=== PATIENT | male | born 1975 | race Caucasian/White ===

== ENCOUNTER 2017-11-13 14:50 | Emergency (ER) | payer OTHER ==
[2017-11-13] MEDS ORDERED: GLUCAGON,HUMAN RECOMB 1 MG INJ IV STA (15:13)
--- NOTE | 2017-11-13 15:40 | ER Document Report ---
ED General - General Chief Complaint: Choked/Choking Stated Complaint: CHOKING Time Seen by Provider: 11/13/17 15:00 TRAVEL OUTSIDE OF THE [place] IN LAST 30 DAYS: No - HPI Onset: Other - 1 hour prior to arrival Onset/Duration: Sudden, Constant Quality of pain: Achy Severity: Moderate Exacerbated by: Food Relieved by: Denies Similar symptoms previously: Yes Notes: Patient presents to emergency room for food bolus impaction. He was eating a corndog at about 230 this afternoon and felt it get stuck in his esophagus. He has been unable to tolerate liquids or his saliva since. He did try to induce vomiting with no success. He has a history of food impactions in the past. The last time he had an EGD was 2005. He is not currently under the care of a GI physician. He reports an aching pain high in the back of his throat. He denies any difficulty breathing, wheezing, chest pain, and abdominal pain. - Related Data Allergies/Adverse Reactions: No Known Allergies Allergy (Verified 11/13/17 14:51) Past Medical History - Social History Smoking Status: Never Smoker Frequency of alcohol use: Occasional Drug Abuse: None Family History: Reviewed & Not Pertinent - Medical History Medical History: Negative Past Surgical History: Reports: Hx Appendectomy, Hx Nose Surgery - septoplasty, Hx Tonsillectomy - Immunizations Hx Diphtheria, Pertussis, Tetanus Vaccination: Yes Review of Systems - Review of Systems Notes: REVIEW OF SYSTEMS: CONSTITUTIONAL : Denies fever, chills, or sweats. Denies recent illness. EENT: Denies eye, ear, throat, or mouth pain or symptoms. Denies nasal or sinus congestion. CARDIOVASCULAR: Denies chest pain. RESPIRATORY: Denies cough, cold, or chest congestion. Denies shortness of breath, difficulty breathing, or wheezing. GASTROINTESTINAL: Unable to swallow. Denies abdominal pain. Denies nausea, vomiting, or diarrhea. Denies constipation. GENITOURINARY: Denies difficulty urinating, painful urination and urinary frequency. MUSCULOSKELETAL: Denies neck or back pain or joint pain. SKIN: Denies rash or skin lesions. HEMATOLOGIC : Denies easy bruising or bleeding. LYMPHATIC: Denies swollen, enlarged glands. NEUROLOGICAL: Denies altered mental status. Denies headache. Denies weakness or paralysis. Denies problems with gait or speech. Denies sensory or motor loss. PSYCHIATRIC: Denies anxiety or depression. ALL OTHER SYSTEMS REVIEWED AND NEGATIVE. Physical Exam - Vital signs Vitals: Pulse Ox 98 11/13/17 15:02 - Notes Notes: PHYSICAL EXAMINATION: GENERAL: well-nourished and in mild acute distress. HEAD: Atraumatic, normocephalic. EYES: Pupils equal round and reactive to light, extraocular movements intact, conjunctiva are normal. ENT: nares patent, oropharynx clear without exudates. Moist mucous membranes. Spitting oral secretions NECK: Normal range of motion, supple without lymphadenopathy. No crepitus or tenderness, trachea midline LUNGS: Breath sounds clear to auscultation bilaterally and equal. No wheezes rales or rhonchi. No anterior chest wall crepitus or tenderness HEART: Regular rate and rhythm without murmurs ABDOMEN: Soft, nontender, normoactive bowel sounds. No guarding, no rebound. No masses appreciated. EXTREMITIES: Normal range of motion, no pitting edema. No cyanosis. NEUROLOGICAL: No focal neurological deficits. Moves all extremities spontaneously and on command. PSYCH: Normal mood, normal affect. SKIN: Warm, Dry, normal turgor, no rashes or lesions noted. Course - Re-evaluation Re-evalutation: 11/13/17 15:40 Vitals reviewed and stable. Patient has a food impaction and is unable to tolerate oral secretions. He was given glucagon and a carbonated beverage for symptomatic treatment and attempt to relieve the obstruction. 11/13/17 17:01 After glucagon and carbonated soda patient was able to pass his food bolus. He is tolerating oral secretions and liquid intake. He feels much better. He will be discharged home in stable condition. - Vital Signs Vital signs: Temp Pulse Resp BP Pulse Ox 25 H 106/65 97 11/13/17 16:01 11/13/17 16:01 11/13/17 16:01 Discharge - Discharge Clinical Impression: Food impaction of esophagus Condition: Stable Disposition: HOME, SELF-CARE Instructions: Esophageal Food Impaction ([facility]) Additional Instructions: Follow-up with your primary care provider for referral to gastroenterology in the next 3-5 days. Return to the emergency room for any new or worsening symptoms.
[2017-11-13 17:15] VITALS: BP 122/77
== END 2017-11-13 17:15 | disposition home or self-care (01) ==
LOC: ER 14:50
DX: T18.128A Food in esophagus causing other injury, initial encounter (principal); X58.XXXA Exposure to other specified factors, initial encounter; Y92.009 Unspecified place in unspecified non-institutional (private) residence as the place of occurrence of the external cause
CPT/HCPCS: 99283; 96374; J1610